=== PATIENT | female | born 1965 | race Caucasian/White ===

== ENCOUNTER 2016-10-05 13:55 | Emergency (ER) | payer MEDICAID ==
[~2016-10-05] VITALS: Ht 154.9 cm; Wt 101.0 kg
[~2016-10-05 13:55] MED LIST: ADV25050 INH; ADV50050 INHALATION; ALBU2.5V3 NEB; ALBU8.5H3 INH; ESOM40CA PO; HYDR-3498 PO; IBUP-1542 PO; LEVA15HF6 INH; LORA-932 PO; MONT10TA21 PO; NASO17 NASAL; ONDA4TAB35 PO; PRED20TA PO; TRAM50TA2 PO
[2016-10-05 14:17] VITALS: Ht 154.9 cm; Wt 101.0 kg
[2016-10-05] MEDS ORDERED: SOD CHLORIDE 0.9% 500 ML IV STA (15:28)
[2016-10-05] MEDS ORDERED: ASPIRIN 81 MG TAB PO ONE (15:30)
[2016-10-05 15:54] LABS: ADD SCAN DIFF NO
[2016-10-05 16:01] LABS: BASOPHIL # 0.1 10^3/ul (0.0-0.1); BASOPHILS % 1.3 % (0.0-2.0); EOSINOPHILS # 1.3 10^3/ul (0.0-0.5); EOSINOPHILS % 14.6 % (0.0-7.0); HEMATOCRIT 41.5 % (37.0-47.0); HEMOGLOBIN 13.8 g/dl (12.0-16.0); LYMPHOCYTES # 2.4 10^3/ul (0.8-2.9); LYMPHOCYTES % 27.8 % (15.0-51.0); MEAN CORPUSCULAR HEMOGLOBIN 29.4 pg (29.0-33.0); MEAN CORPUSCULAR HGB CONC 33.3 g/dl (32.0-37.0); MEAN CORPUSCULAR VOLUME 88.3 fl (82.0-101.0); MEAN PLATELET VOLUME 11.2 fl (7.4-10.4); MONOCYTE # 0.8 10^3/ul (0.3-0.9); MONOCYTES % 8.6 % (0.0-11.0); NEUTROPHIL # 4.1 10^3/ul (1.6-7.5); NEUTROPHILS % 47.2 % (39.0-77.0); PLATELET COUNT 250 10^3/UL (140-415); RED CELL DISTRIBUTION WIDTH 14.6 % (11.5-14.5); WHITE BLOOD COUNT 8.7 10^3/ul (4.8-10.8)
--- NOTE | 2016-10-05 16:08 | ERD ---
ER Documentation Chief Complaint Date/Time DATE: 10/05/16 TIME: 16:06 Chief Complaint cp radiates left arm x 1 week HPI 51-year-old woman complains of 1 week of constant non-exertional sharp chest pain radiating down the lateral aspect of the left arm. She also has left upper quadrant abdominal pain similar in intensity and quality, but she states this pain is been present constantly for the last 3 months. She denies exertional chest pain, no shortness of breath, no fevers or chills, no cough, no calf or leg swelling. Patient denies similar previous episodes. She states she has had this type of chest pain once before many years ago she was diagnosed with anxiety, and states she has an appointment with her PMD early next week to follow-up for her left upper quadrant abdominal pain. ROS All systems reviewed and are negative except as per history of present illness. Medications Home Meds Active Scripts Ibuprofen* (Ibuprofen*) 600 Mg Tablet, 600 MG PO Q8 for PAIN AND/OR INFLAMMATION , #30 TAB Prov:KAYLIE ROMERO MD 10/05/16 Prednisone* (Prednisone*) 20 Mg Tab, 40 MG PO DAILY for 4 Days, #8 TAB 0 Refills Prov:SALENA WASHBURN PA-C 09/01/15 Albuterol Sulfate* (Proair HFA*) 8.5 Gm Hfa.aer.ad, 2 PUFF INH Q6H Y for WHEEZING AND SOB, #1 INHALER 0 Refills Prov:SALENA WASHBURN PA-C 09/01/15 Tramadol HCl (Tramadol HCl) 50 Mg Tab, 50 MG PO Q4 Y for PAIN, #20 TAB Prov:RUDDY JARRETT MD 02/19/15 Ibuprofen* (Motrin*) 600 Mg Tab, 600 MG PO Q6, #20 TAB Prov:RUDDY JARRETT MD 02/19/15 Ondansetron Hcl* (Zofran* ODT) 4 mg -ODT Tab.disper, 4 MG PO Q6 Y for NAUSEA AND /OR VOMITING, #15 TAB Prov:CHOSCOTTY 11/06/14 Hydrocodone Bit-Acetaminophen* ([place]hen*) 5-325 Mg Tab, 1 TAB PO Q6 Y for PAIN LEVEL 6-10, #15 TAB Prov:SCOTTY GUTIERRES 11/06/14 Reported Medications Esomeprazole Mag Trihydrate (Nexium) 40 Mg Capsule.dr, 40 MG PO DAILY, CAP 02/07/14 Loratadine (Allergy) 10 Mg Tablet, 10 MG PO DAILY, TAB 02/07/14 Salmeterol Xinaf/Fluticasone* (Advair*) 250-50 Diskus Inhaler, 1 INH INH BID, INH 02/07/14 Mometasone Furoate* (Nasonex*) 50 Mcg/Breese - 17 Gm Breese.pump, 1 SPRAY NASAL DAILY, SPRAY 02/07/14 Montelukast Sodium* (Singulair*) 10 Mg Tablet, 10 MG PO HS, TAB 02/07/14 Levalbuterol* (Xopenex* HFA) 15 Gm Inha, 2 PUFFS INH Q8, EA 02/07/14 Albuterol Sulfate* (Albuterol Sulfate* Neb) 0.083%-3 Ml Neb, 2.5 MG NEB Q4 Y for WHEEZING AND SOB, EA 02/07/14 Discontinued Reported Medications Albuterol Sulfate* (Proair HFA*) 8.5 Gm Hfa.aer.ad, 2 PUFF INH Q6H Y for WHEEZING AND SOB, INH 02/07/14 Discontinued Scripts Salmeterol Xinaf-Fluticasone* (Advair*) 500/50 Diskus Inhaler, 1 INH INHALATION BID for 30 Days, #1 INHALER 0 Refills Prov:SALENA WASHBURN PA-C 09/01/15 Ibuprofen* (Motrin*) 600 Mg Tab, 600 MG PO Q6 Y for PAIN LEVEL 1-5, #15 TAB Prov:REBEKAH GUTIERRESA 11/06/14 Allergies Allergies: Coded Allergies: No Known Drug Allergies (Verified Allergy, Unknown, 09/01/15) PMhx/Soc Obesity, asthma History of Surgery: No Anesthesia Reaction: No Hx Neurological Disorder: No Hx Respiratory Disorders: Yes (asthma) Hx Cardiac Disorders: No Hx Psychiatric Problems: No Hx Miscellaneous Medical Probl: No Hx Alcohol Use: No Hx Substance Use: No Hx Tobacco Use: No Smoking Status: Never smoker FmHx No family history of early coronary artery disease or sudden cardiac . Family History: No diabetes Physical Exam Vitals Vital Signs Date Time Temp Pulse Resp B/P Pulse Ox O2 Delivery O2 Flow Rate FiO2 10/05/16 20:37 72 16 139/79 97 Room Air 10/05/16 17:46 80 18 126/70 98 10/05/16 15:44 89 18 131/77 98 10/05/16 14:17 97.7 73 18 144/81 97 Physical Exam GENERAL: Well-developed, well-nourished, well-hydrated, in no apparent distress , looks nontoxic in appearance HEENT: Moist mucous membranes, pink conjunctiva, no cervical spine tenderness or step-off deformities, no goiter, no jaundice or icterus, extraocular movements intact without pain. No submandibular induration, and no pharyngeal erythema NEURO: Alert and oriented 3, cranial nerves II through XII intact bilaterally, pupils equal round reactive to light, no focal deficits or facial asymmetry, sensation intact distally Strength 5/5 in upper and lower extremities bilaterally CARDIAC: Regular rate and rhythm, no murmurs rubs or gallops LUNGS: Clear bilaterally no wheezing crackles or stridor ABDOMEN: Soft nontender, no guarding, no rigidity, no rebound, no psoas sign no obturator sign. Normoactive bowel sounds SKIN: Warm and dry to touch, no abrasions, contusions, or hematomas, no lacerations, no ecchymosis, no target lesions, and without ulcers EXTREMITIES: No clubbing cyanosis or edema, calves are bilaterally symmetrical, no Homans sign, no popliteal cord sign. Distal pulses equal and bilateral PSYCH: Normal affect without agitation or irritability Result Diagram: 10/05/16 1540 10/05/16 1540 Results 24 hrs Laboratory Tests Test 10/05/16 11:20 10/05/16 15:40 Urine Color YELLOW Urine Clarity CLEAR Urine pH 5.0 Urine Specific Cedar 1.018 Urine Ketones NEGATIVEmg/dL Urine Nitrite NEGATIVEmg/dL Urine Bilirubin NEGATIVEmg/dL Urine Urobilinogen NEGATIVEmg/dL Urine Leukocyte Esterase NEGATIVELeu/ul Urine Microscopic RBC 8/HPF Urine Microscopic WBC 1/HPF Urine Squamous Epithelial Cells FEW/HPF Urine Hemoglobin 2+mg/dL Urine Glucose NEGATIVEmg/dL Urine Total Protein NEGATIVEmg/dl White Blood Count 8.710^3/ul Red Blood Count 4.7010^6/ul Hemoglobin 13.8g/dl Hematocrit 41.5% Mean Corpuscular Volume 88.3fl Mean Corpuscular Hemoglobin 29.4pg Mean Corpuscular Hemoglobin Concent 33.3g/dl Red Cell Distribution Width 14.6% Platelet Count 64595^3/UL Mean Platelet Volume 11.2fl Neutrophils % 47.2% Lymphocytes % 27.8% Monocytes % 8.6% Eosinophils % 14.6% Basophils % 1.3% Nucleated Red Blood Cells % 0.0/100WBC Neutrophils # 4.110^3/ul Lymphocytes # 2.410^3/ul Monocytes # 0.810^3/ul Eosinophils # 1.310^3/ul Basophils # 0.110^3/ul Nucleated Red Blood Cells # 0.010^3/ul D-Dimer 609.34ng/ml D-Dimer Comment Sodium Level 138mmol/L Potassium Level 3.8mmol/L Chloride Level 104mmol/L Carbon Dioxide Level 26mmol/L Anion Gap 12 Blood Urea Nitrogen 13mg/dl Creatinine 0.66mg/dl Glucose Level 96mg/dl Calcium Level 8.9mg/dl Total Bilirubin 0.1mg/dl Direct Bilirubin 0.00mg/dl Indirect Bilirubin 0.1mg/dl Aspartate Amino Transf (AST/SGOT) 26IU/L Alanine Aminotransferase (ALT/SGPT) 35IU/L Alkaline Phosphatase 58IU/L Troponin I < 0.012ng/ml Total Protein 7.3g/dl Albumin 4.5g/dl Globulin 2.80g/dl Albumin/Globulin Ratio 1.60 Lipase 189U/L Current Medications Medications (Trade) Dose Ordered Sig/Keily Route PRN Reason Start Time Stop Time Status Last Admin Dose Admin Sodium Chloride (NS) 500 ml @ 500 mls/hr Q1H STAT IV 10/05/16 15:28 10/05/16 16:27 DC 10/05/16 16:03 Aspirin (Aspirin) 324 mg ONCE ONCE PO 10/05/16 15:30 10/05/16 15:36 DC 10/05/16 16:02 IV Flush 10 ml 10 ml STK-MED ONCE .ROUTE 10/05/16 18:25 10/05/16 18:26 DC 10/05/16 19:00 Sodium Chloride 100 ml @ ud STK-MED ONCE .ROUTE 10/05/16 18:25 10/05/16 18:26 DC 10/05/16 19:00 Iohexol (Omnipaque) 100 ml @ ud STK-MED ONCE .ROUTE 10/05/16 18:25 10/05/16 18:26 DC 10/05/16 19:00 Iohexol (Omnipaque 350mg/ ml) 50 ml STK-MED ONCE .ROUTE 10/05/16 18:25 10/05/16 18:26 DC 10/05/16 19:01 Procedures/MDM IV line was established patient was placed on ekg monitor rhythm strip revealed a sinus rhythm at about 70 bpm with upright P and T waves. Patient was afebrile. EKG performed, read by me: 66 bpm, normal sinus rhythm, normal axis, no acute ST segment changes, narrow QRS complex, with good R-wave progression in precordial leads. Chest X-ray 1V Interpreted by me: Soft Tissue: No acute abnormalities Bones: No acute abnormalities Mediastinum/Cardiac Silhouette/Lungs: No acute abnormalities CBC and electrolytes were unremarkable, liver function tests were normal, troponin was negative, d-dimer elevated at 609. Urinalysis was negative for infection. I administered aspirin 324 mg p.o. as well as 1 L normal saline with good effect. Patient denies complaints of pain or discomfort at this time. CT angiogram of the chest performed no evidence of pulmonary embolism or aortic issues noted. Critical Care: Time: 35 minutes, this was time separate from other billable procedures. Treatments/Evaluations: Close monitoring and treatment of unstable vital signs, cardiorespiratory, and neurologic status, while maintaining tight balance of fluid, respiratory, and cardiac interventions. Patient symptoms have improved, she feels much better and will be discharged to follow-up with her PMD for continued outpatient management. Differential diagnoses considered, included but not limited to acute coronary syndrome, pulmonary embolism, aortic dissection, abdominal aortic aneurysm, sepsis, stroke, meningitis, encephalitis, pneumonia, appendicitis, cholecystitis , bowel obstruction, pyelonephritis, nephrolithiasis, cystitis, as well as metabolic, hematologic, and electrolyte abnormalities. As well as abscess, cellulitis, fractures, and dislocations. Patient feels much better at this time, and vital signs are normal, symptoms have improved. I did give strict instructions to return to the ED if symptoms continue or worsen, patient will otherwise follow-up with primary care physician. Patient understood instructions and agreed to plan. Disclaimer: Inadvertent spelling and grammatical errors are likely due to EHR/ dictation software use and do not reflect on the overall quality of patient care. Also, please note that the electronic time recorded on this note does not necessarily reflect the actual time of the patient encounter. Departure Diagnosis: Primary Impression: Chest pain Chest pain type: unspecified Qualified Code: R07.9 - Chest pain, unspecified type Additional Impression: Abdominal pain Abdominal location: left upper quadrant Qualified Code: R10.12 - Left upper quadrant pain Condition: Good KAYLIE ROMERO MD Oct 05, 2016 16:08
--- NOTE | 2016-10-05 16:13 | RADRPT ---
PROCEDURE: XR Chest. CLINICAL INDICATION: Chest pain. TECHNIQUE: AP view of the chest was obtained. COMPARISON: Multiple prior exams including most recent on 09/01/2015 FINDINGS: The cardiomediastinal silhouette is within normal limits. There is stable appearance of small granul cathy in the right upper lobe. The lungs are otherwise clear. No signs of pleural fluid or pneumothor ax are seen. The osseous structures and soft tissues are unremarkable. IMPRESSION: 1. No evidence for active cardiopulmonary disease. 2. Stable small granulomas changes in the right upper lobe. RPTAT: HGAS .Scout Segovia MD, MD Date Time Electronically viewed and signed by .Scout Segovia MD, on 10/05/2016 16:13 .S/
[2016-10-05 16:20] LABS: ADD UMIC YES; UR ASCORBIC ACID NEGATIVE (NEGATIVE); UR BILIRUBIN (Dip) NEGATIVE (NEGATIVE); UR BLOOD (Dip) 2+ mg/dL (NEGATIVE); UR CLARITY CLEAR (CLEAR); UR COLOR YELLOW (YELLOW); UR GLUCOSE (Dip) NEGATIVE (NEGATIVE); UR KETONES (Dip) NEGATIVE (NEGATIVE); UR LEUKOCYTE ESTERASE (Dip) NEGATIVE Leu/ul (NEGATIVE); UR NITRITE (Dip) NEGATIVE (NEGATIVE); UR RBC 8 /HPF (0-5); UR SPECIFIC GRAVITY (Dip) 1.018 (1.003-1.030); UR SQUAMOUS EPITHELIAL CELL FEW /HPF (FEW); UR TOTAL PROTEIN (Dip) NEGATIVE (NEGATIVE); UR UROBILINOGEN (Dip) NEGATIVE (NEGATIVE)
[2016-10-05 16:25] LABS: D-DIMER 609.34 ng/ml (<460)
[2016-10-05 16:34] LABS: ALANINE AMINOTRANSFERASE 35 IU/L (13-69); ALBUMIN 4.5 g/dl (3.3-4.9); ALKALINE PHOSPHATASE 58 IU/L (42-121); ANION GAP 12 (8-16); ASPARTATE AMINO TRANSFERASE 26 IU/L (15-46); BILIRUBIN,INDIRECT 0.1 mg/dl (0-1.1); BILIRUBIN,TOTAL 0.1 mg/dl (0.2-1.3); BLOOD UREA NITROGEN 13 mg/dl (7-20); CALCIUM 8.9 mg/dl (8.4-10.2); CARBON DIOXIDE 26 mmol/L (21-31); CHLORIDE 104 mmol/L (97-110); CREATININE 0.66 mg/dl (0.44-1.00); GLUCOSE 96 mg/dl (70-220); POTASSIUM 3.8 mmol/L (3.5-5.1); SODIUM 138 mmol/L (135-144); TOTAL PROTEIN 7.3 g/dl (6.1-8.1)
[2016-10-05 16:50] LABS: TROPONIN-I < 0.012 ng/ml (0.00-0.12)
[2016-10-05] MEDS ORDERED: IOHEXOL 350MG/ML 50 ML BTL ONE (18:25)
[2016-10-05] MEDS ORDERED: SOD CHLORIDE 0.9% 100 ML ONE (18:25)
[2016-10-05] MEDS ORDERED: IOHEXOL 100 ML ONE (18:25)
--- NOTE | 2016-10-05 19:28 | RADRPT ---
PROCEDURE: CT Pulmonary Angiogram. CLINICAL INDICATION: Chest pain and shortness of breath. TECHNIQUE: CT pulmonary angiogram and a CT scan of the chest with contrast was performed. The pat ient was scanned following the uncomplicated intravenous administration of 120 cc of Omnipaque-350 i ntravenous contrast. 2-D coronal reformatted images were obtained from the axial source images. In addition, 3-D post processing was performed. Total exam DLP is 743 point screw 0 mGy-cm. CTDIvol is 19.98 mGy. One or more of the following dose reduction techniques were used: Automated exposure control, adjustment of the mA and/or kV according to patient size, use of iterative reconstruction t echnique. COMPARISON: None available. FINDINGS: The pulmonary arteries are normal with no filling defect or lack of enhancement to suggest pulmonary artery embolism. There is minimal air space disease laterally in the lingula which may indicate atelectasis or pneumo juanis. The lungs are otherwise clear with no other airspace or interstitial disease. There is no pulmonary nodule or mass lesion. There is no pneumothorax. There is no mediastinal or hilar lymphadenopathy or mass. There is no pleural effusion. There is no pericardial effusion. The thoracic aorta is normal with no aneurysm or dissection. Images through the upper abdomen demonstrate normal visualized portions of the liver, spleen, and ad renals. The osseous structures are normal with no fracture or lytic lesion. IMPRESSION: 1. Normal CT pulmonary angiogram with no evidence of pulmonary artery embolism. 2. Minimal air space disease laterally in the lingula which may indicate atelectasis or pneumonia. 3. Otherwise unremarkable CT scan of the chest. RPTAT: QQ .Migue Zamarripa MD, Date Time Electronically viewed and signed by .Migue Zamarripa MD, on 10/05/2016 19:28 .R/
[2016-10-05] MEDS ORDERED: IBUP-1542 PO (19:50)
[2016-10-05 20:37] VITALS: BP 139/79; PULSE 72; RESP 16
== END 2016-10-05 20:39 | disposition home or self-care (01) ==
LOC: E/R 13:55
DX: R07.9 Chest pain, unspecified (principal); R10.12 Left upper quadrant pain
CPT/HCPCS: 36415; 71010; 71275; 80053; 81001; 83690; 84484; 85025; 85378; 93005; J7040; Q9967; Z7502; Z7610